=== PATIENT | female | born 1965 | race Two or more races ===

== ENCOUNTER 2024-09-09 07:01 | Day surgery (SDC) | payer OTHER ==
[2024-09-08 09:01] VITALS: BP 116/79
[2024-09-08 09:24] LABS: PH,URINE 6.5 (5.0-8.0); URINE APPEARANCE Clear; URINE BILIRRUBIN Negative (NEGATIVE); URINE BLOOD Negative; URINE COLOR Yellow; URINE GLUCOSE Negative (NEGATIVE); URINE KETONE Negative (NEGATIVE); URINE LEUKOCYTE Small; URINE NITRATE Negative; URINE PROTEIN Negative (NEGATIVE); URINE UROBILINOGEN 0.2 E.U./dl
[2024-09-08 09:26] LABS: URINE BACTERIA 735.4 uL (0.0-1933); URINE EPITHELIAL CELLS 34.1 uL (0.0-38.8); URINE WBC 33.8 uL (0.0-23.2)
[2024-09-08 09:30] LABS: HEMATOCRIT 44.8 % (36.0-45.00); HEMOGLOBIN 14.9 g/dL (12.0-15.00); MEAN CELL VOLUME 88.2 fL (80.00-100.00); MEAN CORPUSCULAR HEMOGLOBIN 29.3 pg (27.00-32.0); MEAN CORPUSCULAR HGB CONC 33.2 g/dl (32.0-36.0); PLATELET COUNT 269 K/uL (150-450); RED BLOOD COUNT 5.08 M/uL (4.00-6.00)
[2024-09-08 09:57] LABS: INR 0.96; PARTIAL THROMBOPLASTIN TIME 28.1 SECONDS (22.0-34.0); PROTHROMBIN TIME 10.5 SECONDS (9.0-11.5)
[2024-09-08 10:27] LABS: ALBUMIN 3.5 gm/dL (3.4-5.0); BILIRUBIN TOTAL 0.45 mg/dL (0.3-1.2); CALCIUM 9.1 mg/dL (8.5-10.1); CREATININE SERUM 0.76 mg/dL (0.55-1.02); GFR 77.89; GLOBULINA 3.2 G/DL (2.4-3.5); POTASSIUM 4.3 mEq/L (3.5-5.1); TOTAL PROTEIN 6.7 gm/dL (6.4-8.2)
[~2024-09-09] VITALS: Ht 157.5 cm; Wt 78.9 kg
[~2024-09-09 07:01] MED LIST: PRILOSEC OTC20 MG PO
[2024-09-09] MEDS ORDERED: CEFAZOLIN SODIUM 1,000 MG VIAL ONE (12:54)
[2024-09-09] MEDS ORDERED: BUPIVACAINE HCL/MPF 0.5% 30ML VIAL ONE (12:54)
== END 2024-09-09 15:05 | disposition home or self-care (01) ==
LOC: CIR.AMB 07:01
PROVIDERS: ATTEND Orthopaedic Surgery Hand Surgery
DX: M65.341 Trigger finger, right ring finger (principal); M65.331 Trigger finger, right middle finger

== ENCOUNTER 2025-04-10 12:00 | Emergency (ER) | payer OTHER ==
[~2025-04-10] VITALS: Ht 157.5 cm; Wt 79.4 kg
[2025-04-10] MEDS ORDERED: CARAFATE1 GM PO (12:49)
[2025-04-10] MEDS ORDERED: 0.9 % SODIUM CHLORIDE 1,000 ML IV SCH (13:15)
[2025-04-10] MEDS ORDERED: KETOROLAC TROMETHAMINE 30 MG VIAL IV ONE (13:15)
[2025-04-10] MEDS ORDERED: KETOROLAC TROMETHAMINE 30 MG VIAL ONE (13:26)
[2025-04-10] MEDS ORDERED: BARIUM SULFATE 450 ML ORAL.SUSP PO ONE (13:28)
[2025-04-10 13:42] LABS: BASO % 0.3 % (0.1-1.2); EOS # 0.17 (0.04-0.54); EOS % 1.6 % (0.7-7.0); LYMPH # 1.43 (1.18-3.74); LYMPH % 13.4 % (19.3-53.1); MEAN PLATELET VOLUME 10.70 fl (9.4-12.4); MONO # 0.76 (0.24-0.82); MONO % 7.1 % (4.7-12.5); NEUT # 8.22 (1.56-6.13); NEUT % 77.3 % (34.0-71.1); RED CELL DISTRIBUTION WIDTH 14.0 % (11.6-14.4)
[2025-04-10 14:30] LABS: URINE APPEARANCE Cloudy; URINE BILIRRUBIN Negative (NEGATIVE); URINE BLOOD Negative; URINE COLOR Yellow; URINE GLUCOSE Negative (NEGATIVE); URINE KETONE Trace (NEGATIVE); URINE LEUKOCYTE Trace; URINE NITRATE Negative; URINE PROTEIN Negative (NEGATIVE); URINE UROBILINOGEN 0.2 E.U./dl
[2025-04-10 14:31] LABS: URINE BACTERIA 8581.2 uL (0.0-1933); URINE EPITHELIAL CELLS 85.8 uL (0.0-38.8); URINE RBC 11.1 uL (0.0-20.8); URINE WBC 57.9 uL (0.0-23.2)
[2025-04-10 14:37] LABS: BUN CREA RATIO 18.0 (7.0-25.0); CREATININE SERUM 0.83 mg/dL (0.55-1.02); GFR 70.12; GLUCOSE FASTING 82.0 mg/dL (65-100); OSMOLALITY SERUM 281.0 MOSM/KG (275-295)
[2025-04-10 15:00] LABS: TYPE CELLS SQUAMOUS; URINE CAST 0.58 uL (0.0-1.40); URINE MUCUS SCANT
[2025-04-10] MEDS ORDERED: FAMOTIDINE/PF 20 MG in 0.9 % SODIUM CHLORIDE 8 ML IV PUSH STA (18:05)
[2025-04-10] MEDS ORDERED: METRONIDAZOLE500 MG PO (18:08)
[2025-04-10] MEDS ORDERED: INTESTINEX680 M1 PO (18:08)
[2025-04-10] MEDS ORDERED: PROTONIX40 MG PO (18:08)
[2025-04-10] MEDS ORDERED: CIPRO500 MG PO (18:08)
[2025-04-10] MEDS ORDERED: CIPROFLOXACIN HCL 500 MG TABLET PO ONE (18:15)
[2025-04-10] MEDS ORDERED: DIPHENOXYLATE HCL/ATROPINE 1 UDTAB TABLET PO ONE (18:15)
[2025-04-10] MEDS ORDERED: FAMOTIDINE/PF 20 MG/2 ML VIAL ONE (18:36)
== END 2025-04-10 19:42 | disposition home or self-care (01) ==
LOC: ER 12:00
PROVIDERS: Emergency Medicine
DX: K52.9 Noninfective gastroenteritis and colitis, unspecified (principal); R10.9 Unspecified abdominal pain; Z91.040 Latex allergy status
CPT/HCPCS: 36415; 74177; Q9965